=== PATIENT | male | born 1970 | race Caucasian/White ===

== ENCOUNTER 2017-03-03 09:36 | Emergency (ER) | payer BC ==
[2017-03-03 10:04] VITALS: BP 145/85
--- NOTE | 2017-03-03 10:31 | UC ---
Abdominal Pain Male HPI - HPI Summary HPI Summary: diarrhea x 1 week + nausea, abdominal cramps no fever, no chills - History of Current Complaint Chief Complaint: UCGI Stated Complaint: STOMACH NAUSEA DIARRHEA Time Seen by Provider: 03/03/17 10:04 Hx Obtained From: Patient Timing: Constant Severity Initially: Moderate Severity Currently: Moderate Location: Diffuse Radiates: No Character: Cramping Aggravating Factor(s):: Food Alleviating Factor(s): Nothing Associated Signs And Symptoms: Positive: Nausea, Vomiting, Diarrhea. Negative: Diaphoresis, Fever, Cough, Chest Pain, Dizzy, Back Pain, Constipation, Blood in Stool, Urinary Symptoms, Decreased Appetite - Allergies/Home Medications Allergies/Adverse Reactions: Allergies Allergy/AdvReac Type Severity Reaction Status Date / Time dust Allergy Rash Uncoded 03/03/17 10:17 Home Medications: Home Medications Bismuth Subsalicylate [Pepto Bismol] 262 mg PO SEE INSTRUCTIONS 03/03/17 [ History Confirmed 03/03/17] Disulfiram TAB* [Antabuse 250 MG TAB*] 250 mg PO QPM 03/03/17 [History Confirmed 03/03/17] Gabapentin CAP(*) [Neurontin 300 CAP(*)] 900 mg PO BEDTIME 03/03/17 [History Confirmed 03/03/17] [place] Carbonate [Lithobid] 300 mg PO QPM 03/03/17 [History Confirmed 03/03/17] cloNIDine TAB* [Catapres 0.1 MG TAB*] 0.2 mg PO QPM 03/03/17 [History Confirmed 03/03/17] PMH/Surg Hx/FS Hx/Imm Hx GI/ History: Gastroesophageal Reflux, Diverticulitis - Surgical History Surgical History: Yes Surgery Procedure, Year, and Place: see hx above; uvulectom, tonsils, lung abscess and chest tube - Family History Known Family History: Positive: Hypertension - Social History Alcohol Use: None Substance Use Type: None Smoking Status (MU): Light Every Day Tobacco Smoker Review of Systems Constitutional: Negative Skin: Negative Eyes: Negative ENT: Negative Respiratory: Negative Cardiovascular: Negative Gastrointestinal: Abdominal Pain, Vomiting, Diarrhea, Nausea Genitourinary: Negative All Other Systems Reviewed And Are Negative: Yes Physical Exam Triage Information Reviewed: Yes Appearance: Well-Appearing, No Pain Distress, Obese Vital Signs: Initial Vital Signs Temp 98.2 F 03/03/17 09:53 Pulse 90 03/03/17 09:53 Resp 18 03/03/17 09:53 BP 145/85 03/03/17 09:53 Vital Signs Reviewed: Yes Eyes: Positive: Conjunctiva Clear ENT: Positive: Normal ENT inspection, Hearing grossly normal, Pharynx normal Neck: Positive: Supple, Nontender, No Lymphadenopathy Respiratory: Positive: Chest non-tender, Lungs clear, Normal breath sounds Cardiovascular: Positive: RRR, No Murmur, Pulses Normal Abdominal Exam: Normal Abdomen Description: Positive: Nontender, Soft. Negative: CVA Tenderness (R), CVA Tenderness (L), Distended, Guarding Bowel Sounds: Positive: Present Neurological Exam: Normal Skin Exam: Normal Abd Pain Male Course/Dx - Differential Dx/Clinical Impression Provider Diagnoses: gastroenteritis Discharge - Discharge Plan Condition: Stable Disposition: HOME Prescriptions: Ondansetron [Zofran 8 MG Odt] 8 mg PO Q8H #9 tab Patient Education Materials: Gastroenteritis (ED) Forms: *Work Release Referrals: No Primary Care Phys,NOPCP [Primary Care Provider] - 7 Days
== END 2017-03-03 10:46 | disposition home or self-care (01) ==
LOC: UCCORT 09:36
DX: K52.9 Noninfective gastroenteritis and colitis, unspecified (principal); K21.9 Gastro-esophageal reflux disease without esophagitis; K57.92 Diverticulitis of intestine, part unspecified, without perforation or abscess without bleeding; F17.210 Nicotine dependence, cigarettes, uncomplicated
CPT/HCPCS: 93005; 99212; G0463

== ENCOUNTER 2017-03-27 12:47 | Emergency (ER) | payer BC ==
[2017-03-27 13:01] VITALS: BP 116/69
[2017-03-27] MEDS ORDERED: HYDROcodone/ACETAMIN 5-325 MG* 1 TAB PO ONE (13:52)
--- NOTE | 2017-03-27 14:21 | RAD ---
HISTORY: Back pain, spasm COMPARISONS: None VIEWS: 2, Frontal and lateral views of the thoracolumbar junction. FINDINGS: ALIGNMENT: The alignment is normal. VERTEBRAL BODIES: The vertebral body heights are normal. The interpedicular distances are normal. There is anterolateral marginal osteophyte formation JOINTS: There is mild diffuse facet hypertrophic change, most pronounced along the lower lumbar spine INTERVERTEBRAL DISCS: There is diffuse loss of intervertebral disc height. SOFT TISSUE: Unremarkable OTHER: The visualized lungs are clear. IMPRESSION: DEGENERATIVE DISC DISEASE WITH MILD FACET OSTEOARTHRITIS.
--- NOTE | 2017-03-27 14:31 | UC ---
Back Pain HPI - HPI Summary HPI Summary: 46 year old with back pain. states has chronic low back pain, has been doing Physical therapy for 5-6 weeks which has helped some. Today while at working picking up a door back spasm and was unable to stand upright. c/o spasm in right lower back, trouble moving from sitting to standing. He takes disulfuram for 2 years and no alcohol since then. has taken NSAIDs and APAP and not helping. Pain 8/10 and can not move without pain. No leg weakness, no bowel or bladder concerns. no foot drop. no trauma otherwise. pain can radiate down back right sided and leg but mostly in the thoracic and lumbar spine [ End ] - History of Current Complaint Chief Complaint: UCBackPain Stated Complaint: BACK PAIN Time Seen by Provider: 03/27/17 13:45 Hx Obtained From: Patient, Family/Mold Runner Onset/Duration: Sudden Onset Timing: Constant Severity Initially: Moderate Severity Currently: Severe Back Pain: Is Diffuse Character: Spasmodic, Stiffness Aggravating Factor(s): Movement, Lifting Alleviating Factor(s): Rest Associated Signs And Symptoms: Positive: Negative - Allergies/Home Medications Allergies/Adverse Reactions: Allergies Allergy/AdvReac Type Severity Reaction Status Date / Time dust Allergy Rash Uncoded 03/27/17 13:01 PMH/Surg Hx/FS Hx/Imm Hx Previously Healthy: Yes - Surgical History Surgical History: Yes Surgery Procedure, Year, and Place: see hx above; uvulectom, tonsils, lung abscess and chest tube - Family History Known Family History: Positive: Hypertension - Social History Occupation: Employed Full-time Lives: With Family Alcohol Use: None Substance Use Type: None Smoking Status (MU): Heavy Every Day Tobacco Smoker Type: Cigarettes Amount Used/How Often: 1 ppd - Immunization History Most Recent Influenza Vaccination: no Review of Systems Musculoskeletal: Arthralgia - spasms and sciatica, Decreased ROM Is Patient Immunocompromised?: No All Other Systems Reviewed And Are Negative: Yes Physical Exam Triage Information Reviewed: Yes Appearance: Well-Appearing, Pain Distress - moderate to severe Vital Signs: Initial Vital Signs Temp 97.8 F 03/27/17 12:54 Pulse 65 03/27/17 12:54 Resp 16 03/27/17 12:54 BP 116/69 03/27/17 12:54 Pulse Ox 100 03/27/17 12:54 Vital Signs Reviewed: Yes Eye Exam: Normal Respiratory Exam: Normal Cardiovascular Exam: Normal Musculoskeletal: Positive: No Edema, ROM Limited @ - with flexion in the L spine., Other: - diffuse right sided thoracolumbar paraspinal and latissmus tenderness to palpation with no step off. no sp tenderness. (+) SLR left. very tight hamstrings b/l and limited extension due to this. knee exam WNL. Neurological Exam: Normal Psychological Exam: Normal Skin Exam: Normal Back Pain Course/Dx - Course Course Of Treatment: Patient in moderate to severe pain, he denies any opiod abuse, not drinking Etoh for 2 years, offered norco 1 time dose here in the office and start medrol and refer to Ortho at this time. If Sx worsen then go to ED . He is aware. GF is driving him home. - Differential Dx/Diagnosis Differential Diagnosis/HQI/PQRI: Herniated Disc, Strain, Sprain Provider Diagnoses: sciatica and muscle spasm s Discharge - Discharge Plan Condition: Good Disposition: HOME Prescriptions: Cyclobenzaprine TAB* [Flexeril 10 MG TAB*] 10 mg PO BID PRN #10 tab PRN Reason: spasm Methylprednisolone [Medrol Dosepak 4 MG*] 0 mg PO .SEE SHAUN INSTRUCTION #1 tab Patient Education Materials: Sciatica (ED), Lower Back Exercises (ED) Forms: *Work Release Referrals: Jose Antonio Duke PA [Primary Care Provider] - 4 Days Marko Reese MD [Medical Doctor] - 1 Day (Ortho referral )
== END 2017-03-27 14:32 | disposition home or self-care (01) ==
LOC: UCCORT 12:47
DX: M54.30 Sciatica, unspecified side (principal); M62.830 Muscle spasm of back; F17.210 Nicotine dependence, cigarettes, uncomplicated
CPT/HCPCS: 72080; 99212; G0463

== ENCOUNTER 2017-04-01 08:30 | Emergency (ER) | payer BC ==
[2017-04-01 08:46] VITALS: BP 129/72
--- NOTE | 2017-04-01 09:25 | UC ---
Back Pain HPI - HPI Summary HPI Summary: lower back pain x 5 days hx of chronic back pain / spasm felt back spasm at work 5 days ago , was seen at the urgent care, has been out of work for the past 5 days feeling better after doing physical therapy wants a note to return back to work - History of Current Complaint Chief Complaint: UCBackPain Stated Complaint: RE-CK BACK SPASMS Time Seen by Provider: 04/01/17 09:11 Hx Obtained From: Patient Onset/Duration: Sudden Onset, Lasting Days - 5, Resolved Timing: Constant Severity Initially: Severe Severity Currently: Mild Back Pain: Is Discrete @ - lower back Character: Spasmodic Aggravating Factor(s): Movement, Lifting, Bending, Walking, Cough Alleviating Factor(s): Rest Associated Signs And Symptoms: Negative: Swelling, Redness, Bruising, Fever, Weakness, Numbness, Tingling, Abdominal Pain, Flank Pain, Bladder Incontinence, Bowel Incontinence, Weight Loss, Pain with Weight Bearing - Allergies/Home Medications Allergies/Adverse Reactions: Allergies Allergy/AdvReac Type Severity Reaction Status Date / Time dust Allergy Rash Uncoded 04/01/17 08:46 PMH/Surg Hx/FS Hx/Imm Hx Psychological History: Bipolar Disorder, Post Traumatic Stress Disorder - Surgical History Surgical History: Yes Surgery Procedure, Year, and Place: see hx above; uvulectomy, tonsils, lung abscess and chest tube; gastric bypass ~ 2007 - Family History Known Family History: Positive: Hypertension - Social History Alcohol Use: None Substance Use Type: None Smoking Status (MU): Heavy Every Day Tobacco Smoker Type: Cigarettes Amount Used/How Often: 1 ppd - Immunization History Most Recent Influenza Vaccination: no Review of Systems Constitutional: Negative Skin: Negative Eyes: Negative ENT: Negative Respiratory: Negative Is Patient Immunocompromised?: No All Other Systems Reviewed And Are Negative: Yes Physical Exam Triage Information Reviewed: Yes Appearance: Well-Appearing, No Pain Distress, Well-Nourished Vital Signs: Initial Vital Signs Temp 98.3 F 04/01/17 08:39 Pulse 79 04/01/17 08:39 Resp 24 04/01/17 08:39 BP 129/72 04/01/17 08:39 Vital Signs Reviewed: Yes Eyes: Positive: Conjunctiva Clear ENT: Positive: Normal ENT inspection, Hearing grossly normal, Pharynx normal Neck: Positive: Supple, Nontender, No Lymphadenopathy Respiratory: Positive: Chest non-tender, Lungs clear, Normal breath sounds Cardiovascular: Positive: RRR, No Murmur, Pulses Normal Abdomen Description: Positive: Nontender, Soft. Negative: Distended, Guarding Bowel Sounds: Positive: Present Musculoskeletal: Positive: Strength Intact, ROM Intact, No Edema, Other: - lower back : no swelling, no tenderness, good ROM on flexion and extension Neurological: Positive: Alert Back Pain Course/Dx - Differential Dx/Diagnosis Provider Diagnoses: lower back strain Discharge - Discharge Plan Condition: Stable Disposition: HOME Patient Education Materials: Low Back Strain (ED) Forms: *Work Release Referrals: Jose Antonio Duke PA [Primary Care Provider] - 7 Days
== END 2017-04-01 09:26 | disposition home or self-care (01) ==
LOC: UCCORT 08:30
DX: S39.012A Strain of muscle, fascia and tendon of lower back, initial encounter (principal); J30.89 Other allergic rhinitis; F17.210 Nicotine dependence, cigarettes, uncomplicated; X58.XXXA Exposure to other specified factors, initial encounter
CPT/HCPCS: 99211; G0463